=== PATIENT | male | born 1940 | race Caucasian/White ===

== ENCOUNTER 2020-04-02 08:26 | Day surgery (SDC) | payer BC ==
[~2020-04-02 08:26] MED LIST: ASPI81EC PO; LEVSOD25 PO
[2020-04-02 09:18] LABS: International Normalized Ratio 1.02; Prothrombin Time Results 10.9 Sec (9.7-11.5)
--- NOTE | 2020-04-02 11:48 | NUR ---
Patient up to Ambulate independently. Gait steady. Discharge instructions reviewed with patient. Patient verbalizes understanding. Copy given to patient to take home. Patient States Post-Procedure ride home has been arranged.
== END 2020-04-02 12:08 | disposition home or self-care (01) ==
LOC: CT 08:26
PROVIDERS: Registered Nurse Oncology
DX: C25.1 Malignant neoplasm of body of pancreas (principal); C78.6 Secondary malignant neoplasm of retroperitoneum and peritoneum; I11.0 Hypertensive heart disease with heart failure; I50.9 Heart failure, unspecified; E03.9 Hypothyroidism, unspecified; Z79.899 Other long term (current) drug therapy; Z79.82 Long term (current) use of aspirin
CPT/HCPCS: 36415; 49180; 77012; 85610; 85730; 88305

== ENCOUNTER 2020-04-15 10:05 | Day surgery (SDC) | payer BC ==
[~2020-04-15] VITALS: Ht 170.2 cm; Wt 62.2 kg
[~2020-04-15 10:05] MED LIST changes: +CENTRUM SILVER1 EAC2 PO; +FISH OIL PO; +Miralax17 GM PO; +OMEP20ER PO; +TAMS.4ER PO
--- NOTE | 2020-04-15 12:30 | NUR ---
Ambulatory in Day Surgery History, Chart, Medications and Allergies reviewed before start of procedure. Pre-Op teaching done. Pt verbalizes understanding.
--- NOTE | 2020-04-15 14:56 | NUR ---
Discharge instructions reviewed with patient. Patient verbalizes understanding. Copy given to patient to take home. Discharged via wheelchair to private car for ride home. Son met for ride home. signed ride home consent.
--- NOTE | 2020-04-15 14:59 | NUR ---
DRESSING CDI. NO DRAINAGE/BRUSING/SWELLING NOTED.
== END 2020-04-15 23:07 | disposition home or self-care (01) ==
LOC: ORSCMMR 10:05 → ORD 11:30 → ORSCMMR 11:30
PROVIDERS: Surgery
PROC: 0JH60WZ Insertion of Totally Implantable Vascular Access Device into Chest Subcutaneous Tissue and Fascia, Open Approach (ICD-10-PCS; principal; 2020-04-15 11:30)
DX: C25.9 Malignant neoplasm of pancreas, unspecified (principal); E03.9 Hypothyroidism, unspecified; I10 Essential (primary) hypertension; E78.5 Hyperlipidemia, unspecified; Z79.82 Long term (current) use of aspirin; Z79.899 Other long term (current) drug therapy
CPT/HCPCS: 77001; C1788; J0690; J1100; J1642; J2250; J2405; J2704; J7120